=== PATIENT | male | born 1975 | race Hispanic/Latino ===

== ENCOUNTER 2020-02-27 08:40 | Emergency (ER) | payer OTHER ==
[2020-02-27] MEDS ORDERED: ASPIRIN 325 MG TAB PO ONE (08:52)
[2020-02-27 09:22] LABS: Basophils % (Auto) 0.7 % (0.0-1.8); Eosinophils # (Auto) 0.1 K/mm3 (0.0-0.4); Eosinophils % (Auto) 2.2 % (0.0-4.3); Hematocrit 46.5 % (35.5-45.6); Hemoglobin 16.2 gm/dl (11.8-15.2); Lymphocytes # (Auto) 1.3 K/mm3 (1.2-5.4); Lymphocytes % (Auto) 26.9 % (13.4-35.0); Mean Corpuscular HGB Conc 35 % (32-34); Mean Corpuscular Volume 84 fl (84-94); Monocytes # (Auto) 0.4 K/mm3 (0.0-0.8); Monocytes % (Auto) 8.5 % (0.0-7.3); Platelet Count 174 K/mm3 (140-440); Red Blood Count 5.56 M/mm3 (3.65-5.03); Red Cell Distribution Width 12.8 % (13.2-15.2)
--- NOTE | 2020-02-27 09:35 | XRay Report ---
CHEST 1 VIEW INDICATION / CLINICAL INFORMATION: Chest Pain. COMPARISON: 11/13/2014 FINDINGS: SUPPORT DEVICES: None. HEART / MEDIASTINUM: No significant abnormality. LUNGS / PLEURA: Elevation of the right hemidiaphragm which appears new when compared to 11/13/2014. No focal consolidation or significant effusion. No pneumothorax. ADDITIONAL FINDINGS: No significant additional findings. IMPRESSION: 1. No acute findings. Signer Name: Black Marley MD Signed: 02/27/2020 9:31 AM Workstation Name: [id number]
[2020-02-27 09:40] LABS: Blood Urea Nitrogen 11 mg/dL (9-20); Calcium 9.3 mg/dL (8.4-10.2); Hemolysis Index 22
[2020-02-27 09:53] LABS: BUN/Creatinine Ratio 18
[2020-02-27] MEDS ORDERED: IPRATROPIUM/ALBUTEROL SULFATE 3 ML AMPUL.NEB IH ONE (09:58)
[2020-02-27] MEDS ORDERED: METOPROLOL TARTRATE 5 MG/5 ML INJ IV ONE (09:59)
--- NOTE | 2020-02-27 10:02 | Emergency Department Report ---
ED Chest Pain HPI - General Chief Complaint: Chest Pain Stated Complaint: SOB/LEFT ARM PAIN Time Seen by Provider: 02/27/20 09:40 Source: patient Mode of arrival: Ambulatory Limitations: No Limitations - History of Present Illness Initial Comments: 44-year-old male presents to the emergency department with complaint of some midsternal chest pain with occasional radiation to the left side of the chest, and shortness of breath. Patient says that the chest pains have been going on intermittently over the past week but this morning he says it was more intense and more consistent. This morning the patient also has been having some twinges from the left shoulder to the left mid arm. He describes the chest discomfort as a tightness sensation. He denies any tobacco or illicit drug use. He tried some ibuprofen a few days ago without any relief. He has a primary care physician, Dr. Luke, but does not have an appointment with them until 15 March. He denies any history of hypertension but does present with some elevated blood pressure. He says he previously had diabetes but it has been diet controlled and he is no longer on metformin. He does have a family history of early heart attack in his father. No recent travel or sick contacts at home. He denies any fever, back pain, nausea, vomiting, diaphoresis, lower extremity swelling. - Related Data Previous Rx's Medication Instructions Recorded Last Taken Type Albuterol Sulfate [Ventolin HFA] 2 puff IH Q4H PRN #1 hfa.aer.ad 11/13/14 Unknown Rx Amoxicillin/K Clav Tab [Augmentin 1 tab PO Q12H #20 tablet 11/13/14 Unknown Rx 875MG] Promethazine /Codeine 5 ml PO Q6H PRN #120 ml 11/13/14 Unknown Rx [Phenergan/Codeine 6.25-10 mg/5Ml] Albuterol Mdi (or & Nicu Only) 2 puff IH QID PRN #8.5 gram 02/27/20 Unknown Rx [ProAir HFA Inhaler] Allergies Allergy/AdvReac Type Severity Reaction Status Date / Time No Known Allergies Allergy Verified 02/27/20 08:49 Heart Score - HEART Score History: Slightly suspicious EKG: Normal Age: < 45 Risk factors: > 3 risk factors or hx of atherosclerotic disease Troponin: < normal limit HEART Score: 2 - Critical Actions Critical Actions: 0-3 pts:0.9-1.7%risk of adverse cardiac event.Candidate for d ischarge ED Review of Systems ROS: Stated complaint: SOB/LEFT ARM PAIN Other details as noted in HPI Comment: All other systems reviewed and negative Constitutional: denies: chills, fever Eyes: denies: eye pain, vision change ENT: denies: ear pain, throat pain Respiratory: shortness of breath. denies: cough Cardiovascular: chest pain. denies: palpitations, edema Gastrointestinal: denies: abdominal pain, vomiting Genitourinary: denies: urgency, dysuria Musculoskeletal: arthralgia. denies: back pain, joint swelling Skin: denies: rash, lesions Neurological: denies: headache, weakness ED Past Medical Hx - Past Medical History Hx Hypertension: No Hx Diabetes: Yes (DIET CONTROLLED 2 YEARS) - Surgical History Additional Surgical History: left thumb surgery, cyst removed from left leg, umbilical hernia repair 05/12 - Social History Smoking Status: Never Smoker Substance Use Type: None - Medications Home Medications: Home Medications Medication Instructions Recorded Confirmed Last Taken Type Albuterol Sulfate [Ventolin HFA] 2 puff IH Q4H PRN #1 hfa.aer.ad 11/13/14 Unknown Rx Amoxicillin/K Clav Tab [Augmentin 1 tab PO Q12H #20 tablet 11/13/14 Unknown Rx 875MG] Promethazine /Codeine 5 ml PO Q6H PRN #120 ml 11/13/14 Unknown Rx [Phenergan/Codeine 6.25-10 mg/5Ml] Albuterol Mdi (or & Nicu Only) 2 puff IH QID PRN #8.5 gram 02/27/20 Unknown Rx [ProAir HFA Inhaler] ED Physical Exam - General Limitations: No Limitations - Other Other exam information: GENERAL: The patient is well-developed well-nourished. HENT: Normocephalic. Atraumatic. Patient has moist mucous membranes. EYES: Extraocular motions are intact. NECK: Supple. Trachea is midline. CHEST/LUNGS: Clear to auscultation. There is no respiratory distress noted. HEART/CARDIOVASCULAR: Regular. There is no tachycardia. There is no murmur. ABDOMEN: Abdomen is soft, nontender. Patient has normal bowel sounds. SKIN: Skin is warm and dry. NEURO: The patient is awake, alert, and oriented. The patient is cooperative. The patient has no focal neurologic deficits. Normal speech. MUSCULOSKELETAL: There is no tenderness or deformity. ED Course Vital Signs 02/27/20 02/27/20 02/27/20 08:51 09:59 10:01 Temperature 97.5 F L Pulse Rate 81 74 75 Respiratory 20 15 17 Rate Blood Pressure 176/99 137/93 O2 Sat by Pulse 98 98 Oximetry 02/27/20 02/27/20 02/27/20 10:15 10:30 11:00 Temperature Pulse Rate 73 79 82 Respiratory 14 16 12 Rate Blood Pressure 137/93 137/85 137/85 O2 Sat by Pulse 100 96 98 Oximetry 02/27/20 02/27/20 02/27/20 11:20 11:31 12:00 Temperature Pulse Rate 80 83 Respiratory 18 16 Rate Blood Pressure 135/85 134/78 147/93 O2 Sat by Pulse 95 95 Oximetry 02/27/20 12:30 Temperature Pulse Rate 75 Respiratory 17 Rate Blood Pressure 143/76 O2 Sat by Pulse Oximetry KRISSY score - Krissy Score Age > 65: (0) No Aspirin use within the Past 7 Days: (0) No 3 or more CAD Risk Factors: (0) No 2 or more Angina events in past 24 hrs: (1) Yes Known CAD with more than 50% Stenosis: (0) No Elevated Cardiac Markers: (0) No ST Deviation Greater than 0.5mm: (0) No KRISSY Score: 1 ED Medical Decision Making - Lab Data Result diagrams: 02/27/20 09:07 02/27/20 09:07 - EKG Data -: EKG Interpreted by Me EKG shows normal: sinus rhythm, axis, intervals (Slightly prolonged [place] interval), QRS complexes, ST-T waves Rate: normal - EKG Data When compared to previous EKG there are: previous EKG unavailable Interpretation: normal EKG - Radiology Data Radiology results: image reviewed interpreted by me: Chest x-ray does not show any acute process. There are no pleural effusions, obvious pneumonia and there is no pneumothorax. No significant cardiomegaly. - Medical Decision Making This patient presents to the emergency department with a complaint of some chest pain and some left arm pain. EKG did not show any morphology consistent with ST elevation PR. Chest x-ray did not show any pneumonia, pleural effusions, pneumothorax, focal consolidation, or any other acute process. The labs have been unremarkable including negative troponins x2 and a negative d-dimer. The patient was feeling improved after a DuoNeb breathing treatment. No signs of any acute or respiratory distress. His vital signs have been reassuring throughout his ED course. The patient did have hyperglycemia with a blood sugar of about 450 on his serum glucose. However the Accu-Chek, before receiving any insulin, was down to about 250 and therefore he did not receive the insulin. Patient appears safe for discharge home at this time. His contact information has been sent over to [facility] [place] and someone from their office should be contacting him shortly for close outpatient follow-up as part of our [facility] low risk chest pain protocol. He is also been instructed to follow-up with his primary care physician regarding his hyperglycemia. He will return to the ER with any worsening of his symptoms or any acute distress. Critical Care Time: No Critical care attestation.: If time is entered above; I have spent that time in minutes in the direct care of this critically ill patient, excluding procedure time. 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 I have sent your contact information over to [facility] [place], and someone from their office should be contacting you shortly for close outpatient follow-up. I have also given you a referral for 1 of their physicians, Dr. Muñiz. Please try and stay away from foods that are high in sugar, carbohydrates and starches. Keep a blood sugar log. Return to the emergency department with any worsening of your symptoms or with any acute distress. Prescriptions: Albuterol Mdi (or & Nicu Only) [ProAir HFA Inhaler] 2 puff IH QID PRN #8.5 gram PRN Reason: Shortness Of Breath Referrals: PRIMARY CARE, [Primary Care Provider] - 3-5 Days LINDA MUÑIZ MD [Staff Physician] - 3-5 Days Forms: Work/School Release Form(ED) Time of Disposition: 12:41
[2020-02-27] MEDS ORDERED: INSULIN REGULAR, HUMAN 100 UNIT/ML 3ML VIAL IV ONE (10:30)
[2020-02-27] MEDS ORDERED: INSULIN REGULAR, HUMAN 100 UNITS/1 ML ONE (11:00)
[2020-02-27 13:00] VITALS: BP 143/76
== END 2020-02-27 13:01 | disposition home or self-care (01) ==
LOC: ED 08:40
DX: E11.65 Type 2 diabetes mellitus with hyperglycemia (principal); R07.89 Other chest pain; I10 Essential (primary) hypertension; Z98.890 Other specified postprocedural states; Z79.2 Long term (current) use of antibiotics; Z79.899 Other long term (current) drug therapy
CPT/HCPCS: 36415; 71045; 80048; 82962; 83880; 84484; 85025; 85379; 93005; 94640; J1815